=== PATIENT | male | born 1990 | race Two or more races ===

== ENCOUNTER 2024-01-17 18:29 | Emergency (ER) | payer BC ==
[~2024-01-17] VITALS: Ht 175.3 cm; Wt 101.8 kg
[2024-01-17 21:41] VITALS: BP 104/60; PULSE 67; RESP 18; TEMP 98.4; O2SAT 98
== END 2024-01-17 22:08 | disposition home or self-care (01) ==
LOC: ER 18:29
DX: K60.2 Anal fissure, unspecified (principal)